=== PATIENT | male | born 1975 | race Caucasian/White ===

== ENCOUNTER 2017-11-01 17:57 | Emergency (ER) | payer OTHER ==
[2017-11-01] MEDS ORDERED: Tetan/Diph/Pertus SYR(Tdap)* 0.5 ML SYR(BOOSTRIX) use SYR IM ONE (19:18)
[2017-11-01] MEDS ORDERED: Sodium Bicarbonate 8.4% SYR* 10 ML SYRINGE IV ONE (19:52)
--- NOTE | 2017-11-01 21:26 | ED ---
Skin Complaint - HPI Summary HPI Summary: Ambidextrous pt here w/ Lt thumb lac around 17:00 tonight. [place] was at camp using a knife to open a box when he patient accidentally accidentally sliced his left thumb along his nail. He cleaned it out with an antiseptic and applied to Band-Aids, the second with more pressure. He did not bleed through the Band-Aid on his way here however upon removing the dressing, he started bleeding again. He denies numbness, tingling, weakness and pain is 1-2 out of 10. He does not want anything for pain at this point in time. He denies taking anticoagulants and no hemophilia. He is unsure of his last tetanus shot. - History of Current Complaint Chief Complaint: EDLacSutureRecheck Time Seen by Provider: 11/01/17 19:19 Stated Complaint: LT HAND LACERATION Hx Obtained From: Patient Pain Intensity: 2 - Allergy/Home Medications Allergies/Adverse Reactions: Allergies Allergy/AdvReac Type Severity Reaction Status Date / Time No Known Allergies Allergy Verified 11/01/17 18:57 Home Medications: Home Medications Atorvastatin* 20 mg PO DAILY 11/01/17 [History Confirmed 11/01/17] Lisinopril 10 mg PO DAILY 11/01/17 [History Confirmed 11/01/17] PMH/Surg Hx/FS Hx/Imm Hx Previously Healthy: Yes Endocrine/Hematology History: Reports: Hx Blood Disorders - paraproteinemia monoclonal Denies: Hx Diabetes, Autoimmune Disease Cardiovascular History: Reports: Hx Hypercholesterolemia, Hx Hypertension Respiratory History: Reports: Hx Sleep Apnea - current CPAP user Sensory History: Reports: Hx Hearing Problem Psychiatric History: Reports: Hx Anxiety - Immunization History Immunizations Up to Date: Unable to Obtain/Confirm Infectious Disease History: No Infectious Disease History: Denies: Hx of Known/Suspected MRSA, Traveled Outside the [place] in Last 30 Days - Social History Occupation: Employed Full-time Lives: With Family Alcohol Use: Occasionally Hx Substance Use: No Substance Use Type: Reports: None Hx Tobacco Use: No Smoking Status (MU): Never Smoked Tobacco Review of Systems Constitutional: Negative Positive: no symptoms reported Musculoskeletal: Negative Skin: Other - lac Neurological: Negative Psychological: Normal All Other Systems Reviewed And Are Negative: Yes Physical Exam Triage Information Reviewed: Yes Vital Signs On Initial Exam: Initial Vitals Temp Pulse Resp BP Pulse Ox 97.8 F 100 18 146/97 96 11/01/17 18:23 11/01/17 18:23 11/01/17 18:23 11/01/17 18:23 11/01/17 18:23 Vital Signs Reviewed: Yes Appearance: Positive: Well-Appearing, No Pain Distress, Well-Nourished Skin: Positive: Warm, Skin Color Reflects Adequate Perfusion - linear lac along paronychial region of Lt thumb Head/Face: Positive: Normal Head/Face Inspection Eyes: Positive: EOMI Respiratory/Lung Sounds: Positive: Breath Sounds Present Cardiovascular: Positive: Pulses are Symmetrical in both Upper and Lower Extremities Musculoskeletal: Positive: Normal, Strength/ROM Intact Neurological: Positive: Normal, Sensory/Motor Intact, Alert, Oriented to Person Place, Time, CN Intact II-III Psychiatric: Positive: Normal Diagnostics - Vital Signs Vital Signs Temp Pulse Resp BP Pulse Ox 11/01/17 21:00 90 95 11/01/17 20:38 89 150/100 94 11/01/17 20:08 84 162/106 98 11/01/17 18:23 97.8 F 100 18 146/97 96 - Laboratory Lab Statement: Any lab studies that have been ordered have been reviewed, and results considered in the medical decision making process. Course/Dx - Course Course Of Treatment: AFter soaking pt's finger in hibaclens solution and applying pressure with elevation, bleeding is controlled. Due to the location of the lac, opted to pressure dress wound in the event recurrent bleeding takes place - pt tolerated well and agrees w/ plan. No closure required. - Diagnoses Provider Diagnoses: Laceration of left thumb Discharge - Sign-Out/Discharge Documenting (check all that apply): Patient Departure - Discharge Plan Condition: Stable Disposition: HOME Patient Education Materials: Finger Laceration (ED) Referrals: Jj Ohara MD [Primary Care Provider] - Additional Instructions: Keep Dressing clean and dry and in place for the next 48 hours. After that time you may remove dressing, gently wash wound with soap and water, rinse well and pat dry with clean cloth. Reapply triple antibiotic ointment and clean gauze dressing. Continue this daily until scabs or wound closes in about 10-14 days. Rest, ice, elevate and you may take ibuprofen with food as needed for pain. * If you develop redness, swelling, streaking, purulent drainage, fevers or chills, seek medical attention sooner or return to the emergency department. - Billing Disposition and Condition Condition: STABLE Disposition: Home
[2017-11-01 22:16] VITALS: BP 127/89
== END 2017-11-01 21:55 | disposition home or self-care (01) ==
LOC: ED 17:57
CPT/HCPCS: 90715